=== PATIENT | female | born 1935 | race Caucasian/White ===

== ENCOUNTER → 2016-11-28 | Outpatient (CLI) | payer OTHER ==
[~2016-11-28] MED LIST: ALEVE220 M1 PO; AMITRIPTYLINE H25 M2 PO; ATIVAN0.5 MG PO; CLONAZEPAM0.125 MG PO; HYDROCODON-ACE1 EAC8 PO; LOSARTAN-HCTZ1 EACH PO; NEURONTIN 300300 M1 PO; NORVASC 5 MG TAB5 MG PO; PRILOSEC; PRILOSEC 20 MG20 MG PO
== END ==
LOC: RAD 11:13
DX: Z12.31 Encounter for screening mammogram for malignant neoplasm of breast (principal)

== ENCOUNTER → 2017-10-17 | Outpatient (CLI) | payer OTHER | LOC: RAD 11:33 | DX: M19.011 Primary osteoarthritis, right shoulder (principal); K44.9 Diaphragmatic hernia without obstruction or gangrene; I71.4 Abdominal aortic aneurysm, without rupture; R06.02 Shortness of breath; Z85.3 Personal history of malignant neoplasm of breast ==

== ENCOUNTER → 2018-01-13 | Outpatient (CLI) | payer OTHER | LOC: RAD 09:08 | DX: Z12.31 Encounter for screening mammogram for malignant neoplasm of breast (principal) ==

== ENCOUNTER → 2018-02-26 | Outpatient (CLI) | payer OTHER | LOC: ULTRA 12-22 15:14 → CAT 06:13 | DX: C50.919 Malignant neoplasm of unspecified site of unspecified female breast (principal); I71.4 Abdominal aortic aneurysm, without rupture; R10.84 Generalized abdominal pain ==

== ENCOUNTER → 2018-09-14 | Outpatient (CLI) | payer OTHER | LOC: RAD 11:59 | DX: M19.011 Primary osteoarthritis, right shoulder (principal); R92.8 Other abnormal and inconclusive findings on diagnostic imaging of breast; M79.601 Pain in right arm; M54.2 Cervicalgia; M47.892 Other spondylosis, cervical region; N64.4 Mastodynia; Z85.3 Personal history of malignant neoplasm of breast ==

== ENCOUNTER → 2018-11-20 | Outpatient (CLI) | payer OTHER | LOC: RAD 16:27 | DX: M76.21 Iliac crest spur, right hip (principal); M47.816 Spondylosis without myelopathy or radiculopathy, lumbar region; G89.29 Other chronic pain; R10.31 Right lower quadrant pain ==

== ENCOUNTER → 2018-11-27 | Outpatient (CLI) | payer OTHER | LOC: RAD 12:16 | DX: M48.061 Spinal stenosis, lumbar region without neurogenic claudication (principal); M25.78 Osteophyte, vertebrae; I70.0 Atherosclerosis of aorta; R10.31 Right lower quadrant pain ==

== ENCOUNTER → 2018-12-22 | Outpatient (CLI) | payer OTHER ==
[~2018-12-22] VITALS: Ht 165.1 cm; Wt 83.5 kg
[~2018-12-22] MED LIST changes: +TRAMADOL 50 MG50 MG PO; +TYLENOL EXTRA500 MG PO; +VOLTAREN GEL 1100 G1 TOP
[2018-12-22 13:12] VITALS: BP 155/96
--- NOTE | 2018-12-22 13:42 | NUR ---
Pain Clinic Assessment: 1. History of Osteoarthritis: History of Rheumatoid Arthritis: 2. Height: 5 ft. 5 in. 165.1 cm. Weight: 184.0 lb. oz. 83.462 kg. Patient's BMI: 30.6 3. Vital Signs: BP: 155/96 Pulse: 90 Resp: 20 Temp: 02 Sat: 98 ECG Mon: 4. Pain Intensity: 6 5. Fall Risk: Dizziness: N Needs help standing or walking: Y Fallen in the last 3 months: N Fall risk comments: 6. Patient on Blood Thinner: None 7. History of Hypertension: Y 8. Opioid Therapy greater than 6 weeks: N Opiate Contract Signed: 9. Risk Assessment Tool Provided: 10. Functional Assessment Tool: 11. Recreational Drug Use: Never Drug Type: Tobacco Use: Former Smoker Tobacco Type: Amount or Packs/day: How Many Years: Alcohol Use: Yes Frequency: Special Occasions Quant:
--- NOTE | 2018-12-23 10:54 | HPC ---
[facility] [place] [address] PAIN MANAGEMENT CONSULTATION Name: NELIA MARIA Zack Room #: [facility]#: [id number] Admission: 12/22/18 Attend Phys: John Sanchez DO Discharge: Date of : 35 Report #: [id number] THIS REPORT FOR: //name// CC: John Weller DATE OF SERVICE: 12/22/2018 REFERRING PHYSICIAN: Robinson Weller MD CHIEF COMPLAINT: Right anterior groin pain. HISTORY OF PRESENT ILLNESS: As you know, the patient is an 83-year-old female who has been referred to our service to discuss chronic right groin pain. The patient states her pain began in October 2018. Denies any specific injury or trauma. She indicates pain located along what appears to be the distribution of the right adductor muscle. She is also experiencing some groin discomfort, nondermatomal in distribution. The patient indicates that she has intermittent low back pain at times. She has been provided treatment with tramadol for pain control. This, in conjunction with Tylenol, has been reported to be somewhat beneficial. She has taken ibuprofen in the past, which she noted good benefit, but is resistant to taking anti-inflammatory medications as concern of GI discomfort. She has undergone x-ray imaging, which shows no fractures, no dislocations. The hemipelvis appears intact, there is mild lower lumbar degenerative changes, mild spurring of the anterior superior iliac spine, no bony abnormalities. Given the lack of findings in her pelvic area and hip area, she was then referred to our clinic to discuss the possibility of undergoing lumbar epidural injections for suspected lumbar radiculopathy. The patient indicates today, pain is continuous, steady, constant, describes the pain as aching, gnawing, throbbing and pounding. She places current pain score at 6/10, daily average is 7/10, worst pain has been at 9/10. The patient states that standing for any length of time, sitting for any length of time and bending seems to exacerbate symptoms. Medication tends to mildly improve pain. She has been referred to our service to discuss treatment options for a suspected lumbar radiculopathy. PAST MEDICAL HISTORY: 1. Abdominal aortic aneurysm. 2. Diverticulitis. 3. History of breast cancer. 4. Chronic cervical radiculopathy. 5. Essential hypertension. 6. History of nephrolithiasis. 7. Hypercholesterolemia. [address] [address] PAIN MANAGEMENT CONSULTATION Name: BRODYWALESKANELIA [id number] Admission: 12/22/18 Attend Phys: John Sanchez DO Discharge: Date of : 35 Report #: [id number] PAST SURGICAL HISTORY: 1. Two lumpectomies. 2. Lithotripsy. 3. Tonsillectomy and adenoidectomy. 4. Total abdominal hysterectomy with bilateral salpingo-oophorectomy. 5. Total knee arthroplasty bilaterally. SOCIAL HISTORY: The patient denies tobacco, alcohol, IV or illicit drug use. 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 She is not receiving workmen's compensation or she is trying to obtain disability benefits. She is not in litigation in regards to pain. REVIEW OF SYSTEMS: Positive for fatigue and weakness, wearing corrective eyewear, hearing loss with tinnitus, chronic sinus problems with rhinitis, shortness of breath with walking or lying flat, constipation interspersed with diarrhea, abdominal pain, frequent urination, nocturia, change in force or stream in urination, rash and itching, lightheadedness, dizziness, memory loss with confusion, nervousness, depression. All other review of systems negative per 12-point review of systems other than those listed in the history of present illness. Pain impact score 46/70 indicating severe interference with daily activities secondary to pain. IMAGING DATA: X-ray of the lumbar spine shows normal alignment, disk narrowing at multiple levels, anterior osteophyte formation unchanged from previous evaluation of 2009. Unilateral x-ray of the right hip shows mild spurring along the anterior superior iliac spine, otherwise normal. PQRS, the patient has osteoarthritic changes of the lumbar spine. Mild changes of the right hip. No rheumatoid arthritis. She is placing pain intensity at 6/10. She is a fall risk, but has not had a fall in the last 3 months. She does use a cane for ambulation. She is not on blood thinners. She is treated for hypertension. She is not on chronic opioids. She has a low addiction potential based on our assessment tool. Functional assessment pain impact score is 46/70. PHYSICAL EXAMINATION: VITAL SIGNS: Blood pressure 155/96, pulse 90, respiratory rate 20 and unlabored. The patient is saturating 98% on room air. Height 5 feet 5 inches tall, weight 184 pounds, BMI calculated at 30.6. GENERAL: Well-developed, well-nourished, well-hydrated 83-year-old female appearing stated age, placing current pain score at 6/10. [address] [address] PAIN MANAGEMENT CONSULTATION Name: NELIA MARIA Room #: [facility]#: [id number] Admission: 12/22/18 Attend Phys: John Sanchez DO Discharge: Date of : 35 Report #: [id number] HEENT: Normocephalic, atraumatic. Pupils equal, round, reactive to light. Extraocular muscles are intact. Sclerae nonicteric without injection. NEUROLOGIC: Cranial nerves 2-12 grossly intact. Speech fluent. The patient is deemed a good historian. LUNGS: Clear. No wheeze, rhonchi or rales. CARDIOVASCULAR: Regular. No appreciable gallop or rub. ABDOMEN: Soft, obese, normoactive bowel sounds. EXTREMITIES: Show no clubbing, no cyanosis, no edema. MUSCULOSKELETAL: Lower extremity strength appears symmetrical, but deconditioned bilaterally, 5/5. She is intact to light touch from L1 through S2 dermatomes. Seated straight leg raising negative. Supine straight leg raising negative. Carmela's test mildly positive for right anterior thigh pain. No intrinsic hip pathology. Modified Gaenslen's positive for some axial low back pain, no radiation of symptoms. Ankle clonus negative. Babinski is negative. Muscle bulk and tone symmetrical in lower extremities bilaterally. ASSESSMENT: 1. Suspected lumbar radiculopathy. 2. Facet arthropathy of the lumbar spine. 3. 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 4. Lumbar degeneration. 5. Chronic intractable pain. PLAN: 1. The patient has been referred to our service to discuss possible treatment for suspected lumbar radiculopathy. Difficult to determine if the symptoms she is experiencing are strictly radicular in origin. Her distribution of symptoms would indicate possible L1 finding given the groin involvement, the innervation for the adductor muscle on the right would be from the obturator nerve originating from the L2, L3, L4 level spinal roots. We discussed this with the patient today. Treatment options for suspected lumbar radiculopathy would be the following: We have been able to essentially rule out right hip as the source of the patient's pain given the negative x-ray imaging. We discussed the following treatment options for this suspected radiculopathy for which the patient was referred to our clinic. We discussed physical therapy, stretching exercises, core strengthening, which could improve the patient's overall pain. We discussed medication management with addition of a neuropathic pain medication as well as increased use of her ibuprofen for anti-inflammatory effects. We discussed the requested lumbar epidural injection under fluoroscopic guidance as a possible treatment option to address the innervation most likely involved in her anterior thigh and groin pain. We discussed possible surgical options, though further imaging would be necessary, specifically an MRI of the lumbar spine. After reviewing the risks and benefits of all proposed treatment options, the patient chose to begin with a lumbar epidural injection. [address] [address] PAIN MANAGEMENT CONSULTATION Name: NELIA MARIA Room #: REG [facility]#: [id number] Admission: 12/22/18 Attend Phys: John Sanchez DO Discharge: Date of : 35 Report #: [id number] The patient was advised that third democrat payer restrictions require that authorization be obtained before the patient could undergo a lumbar epidural injection under fluoroscopic guidance. Authorization could take anywhere from 4-7 working days, begin this process immediately. We will contact the patient once this authorization has been approved. 2. No medication changes made at today's visit. We have requested the patient take her ibuprofen 200 mg dose 3 times a day with meals, though she has been taking this medication inconsistently. We recommend a consistent dosing for the next couple of days to determine if efficacy can be reached with this medication. She will watch for side effects of dyspepsia, worsening blood pressure, lower extremity edema with its use. If she notes any side effects, discontinue immediately. 3. We will see the patient back in followup visit once we have achieved authorization to undergo the requested lumbar epidural injection. We will contact her by phone once we have the authorization and schedule her back as quickly as possible. We wish to thank the referring team for the opportunity to see this patient in consultation. We will keep you apprised of response to treatment as we address her ongoing right anterior groin pain. We again wish to thank you for the opportunity to see the patient in consultation. <ELECTRONICALLY SIGNED> By: John Sanchez DO 12/23/18 [id number] John Sanchez DO /nt
== END ==
LOC: PAIN 06:56
DX: I71.4 Abdominal aortic aneurysm, without rupture (principal); K57.30 Diverticulosis of large intestine without perforation or abscess without bleeding; M54.12 Radiculopathy, cervical region; E78.00 Pure hypercholesterolemia, unspecified; I10 Essential (primary) hypertension; Z85.3 Personal history of malignant neoplasm of breast; Z87.442 Personal history of urinary calculi; Z79.899 Other long term (current) drug therapy

== ENCOUNTER → 2018-12-29 | Outpatient (CLI) | payer OTHER ==
[~2018-12-29] VITALS: Ht 165.1 cm; Wt 82.2 kg
--- NOTE | ~2018-12-29 | HPC ---
[address] [address] PAIN MANAGEMENT CONSULTATION Name: BRODYWALESKANELIA Zack Room #: [facility]#: [id number] Admission: 12/29/18 Attend Phys: John Sanchez DO Discharge: Date of : 35 Report #: [id number] THIS REPORT FOR: //name// CC: John Weller DATE OF SERVICE: 12/29/2018 CHIEF COMPLAINT: Right anterior groin and right leg pain. HISTORY OF PRESENT ILLNESS: As you know, the patient is an 83-year-old female who was referred to our service to discuss right groin pain and right lower extremity pain. She states pain began in 2018. She is seen in consultation per the request of Dr. Weller where she was started on medication management with plans to possibly undergo lumbar epidural injection once approval has been obtained. The patient returns today in followup visit having received precertification, reporting pain score around 6-7/10. She reports no new injury, no new trauma or any changes in medical history since our last visit. She returns today to undergo the first in a series of lumbar epidural injections to address lumbar radicular symptoms. ALLERGIES: SULFA. CURRENT MEDICATIONS: Diclofenac gel, acetaminophen, lorazepam, tramadol, losartan, hydrochlorothiazide. SOCIAL HISTORY: The patient denies tobacco, alcohol, IV or illicit drug use. 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 IMAGING: No new imaging available. PQRS: The patient has osteoarthritic changes in the lumbar spine, mild osteoarthritic changes in the right hip. No rheumatoid arthritis. She is placing pain intensity at around 6-7/10. She is a fall risk, but has not had a fall in the last 3 months. She is using a cane for ambulation. She is on no blood thinners, but history of hypertension. She is not on chronic opioids. She has a low opioid addiction. Pain impact score 37/70 indicating moderate interference of daily activities secondary to pain. PHYSICAL EXAMINATION: VITAL SIGNS: Blood pressure 166/75, pulse 97, respiratory rate 16 and unlabored. The patient is 98% on room air. Height 5 feet 5 inches tall, weight 181.2 pounds, BMI calculated at 30.2. GENERAL: Well-developed, well-nourished, well-hydrated 83-year-old female appearing stated age. Pain is rated anywhere from 6-7/10. [address] [address] PAIN MANAGEMENT CONSULTATION Name: NELIA MARIA Room #: [facility]#: [id number] Admission: 12/29/18 Attend Phys: John Sanchez DO Discharge: Date of : 35 Report #: [id number] HEENT: Normocephalic, atraumatic. Pupils equal, round, reactive to light. EXTREMITIES: Show no clubbing, no cyanosis, no edema. MUSCULOSKELETAL: Lower extremity strength is symmetrical 5/5. She is intact to light touch from L1 through S2 dermatomes. Seated straight leg raising negative. Supine straight leg raising negative. Carmela's test is negative.: ASSESSMENT: 1. Suspected lumbar radiculopathy. 2. Facet arthropathy of the lumbar spine. 3. Lumbosacral spondylosis with suspected radicular symptoms. 4. Lumbar degeneration. 5. Chronic intractable pain. PLAN: 1. The patient returns today in followup visit reporting pain score around 6-7/10. She has received precertification to undergo the first in a series of lumbar epidural injections under fluoroscopic guidance. We have advised the patient of the risks and benefits of this procedure. These risks include but are not necessarily limited to bleeding, bruising, infection, worsening pain, no relief of pain, also risk of temporary or permanent muscle weakness, temporary or permanent nerve damage, possible paralysis, post-dural puncture headache and . The patient states she understood and wished to proceed. 2. No medication changes made at today's visit. The patient will continue current medical therapy as previously prescribed. 3. We will see the patient back in followup visit on an as needed basis for possible next in the series of lumbar epidural injections. PROCEDURE NOTE DESCRIPTION OF PROCEDURE: L5-S1 right paramedian epidural steroid injection under fluoroscopic guidance. This is the first procedure of the first series that the patient is undergoing. After obtaining written consent, the patient was taken back to the fluoroscopy suite, placed in a prone position with pillow under the abdomen to decrease lumbar lordosis. The skin overlying the lumbosacral area was then prepped and draped in aseptic fashion. The L5-S1 vertebral interspace was then identified by AP fluoroscopy. The skin and subcutaneous tissue overlying the target site of injection was anesthetized with 3 mL 1% lidocaine. A 20-gauge, 3.5-inch Tuohy needle was then advanced under fluoroscopic guidance towards the epidural space using a right paramedian approach. The epidural space was identified using loss of resistance to air technique. After negative aspiration for heme or cerebrospinal fluid, a total of 1 mL of Omnipaque was injected. A lumbar epidurogram was confirmed using both AP and lateral [address] [address] PAIN MANAGEMENT CONSULTATION Name: NELIA MARIA Room #: [facility]#: [id number] Admission: 12/29/18 Attend Phys: John Sanchez DO Discharge: Date of : 35 Report #: [id number] fluoroscopy. After negative aspiration for heme or cerebrospinal fluid, 5 mL of a solution containing 2 mL 40 mg per mL 80 mg total of triamcinolone, 3 mL of lidocaine 1% was injected in increments. Contrast spread was noted in posterior epidural space. The needle was then retracted approximately half way and needle tract flushed with 1 mL of 1% lidocaine. Needle was then removed. There were no apparent sensory or motor deficits in the lower extremity following the procedure. A sterile bandage was placed over the injection site. The heart rate, pulse, oximetry and blood pressure were continuously monitored after the procedure. There were no apparent complications. The patient tolerated the procedure well and was carefully escorted to the recovery room in stable condition. There were no apparent complications. After meeting discharge criteria, the patient was then discharged home. By: [id number] John Sanchez DO /nt
[2018-12-29 14:22] VITALS: BP 166/75
--- NOTE | 2018-12-29 14:33 | NUR ---
Pain Clinic Assessment: 1. History of Osteoarthritis: Not Applicable History of Rheumatoid Arthritis: Not Applicable 2. Height: 5 ft. 5 in. 165.1 cm. Weight: 181.2 lb. oz. 82.192 kg. Patient's BMI: 30.2 3. Vital Signs: BP: 166/75 Pulse: 97 Resp: 16 Temp: 02 Sat: 98 ECG Mon: 4. Pain Intensity: 6-7 5. Fall Risk: Dizziness: N Needs help standing or walking: Y Fallen in the last 3 months: N Fall risk comments: 6. Patient on Blood Thinner: None 7. History of Hypertension: Y 8. Opioid Therapy greater than 6 weeks: N Opiate Contract Signed: 9. Risk Assessment Tool Provided: 10. Functional Assessment Tool: 11. Recreational Drug Use: Never Drug Type: Tobacco Use: Former Smoker Tobacco Type: Amount or Packs/day: How Many Years: Alcohol Use: Yes Frequency: Quant:
== END | disposition home or self-care (01) ==
LOC: PAIN 06:59
DX: M51.16 Intervertebral disc disorders with radiculopathy, lumbar region (principal); M47.27 Other spondylosis with radiculopathy, lumbosacral region; M47.26 Other spondylosis with radiculopathy, lumbar region; G89.29 Other chronic pain; I10 Essential (primary) hypertension; Z88.2 Allergy status to sulfonamides; Z79.899 Other long term (current) drug therapy; Z87.891 Personal history of nicotine dependence; Z98.890 Other specified postprocedural states

== ENCOUNTER 2020-08-02 16:47 | Emergency (ER) | payer OTHER ==
[~2020-08-02] VITALS: Ht 165.1 cm; Wt 79.4 kg
[2020-08-02] MEDS ORDERED: LORAZEPAM 0.50.5 MG PO (17:35)
[2020-08-02] MEDS ORDERED: OMEPRAZOLE40 MG PO (19:03)
[2020-08-02 19:11] VITALS: BP 155/75
== END 2020-08-02 19:18 | disposition home or self-care (01) ==
LOC: ER 16:47
DX: T18.128A Food in esophagus causing other injury, initial encounter (principal); Z90.711 Acquired absence of uterus with remaining cervical stump; Z96.653 Presence of artificial knee joint, bilateral; Z79.899 Other long term (current) drug therapy; Z88.2 Allergy status to sulfonamides; X58.XXXA Exposure to other specified factors, initial encounter; Y93.89 Activity, other specified; Y92.89 Other specified places as the place of occurrence of the external cause; Y99.8 Other external cause status

== ENCOUNTER → 2020-11-20 | Outpatient (CLI) | payer OTHER ==
[~2020-11-20] MED LIST changes: +LORAZEPAM 0.50.5 MG PO; +OMEPRAZOLE40 MG PO
== END ==
LOC: BC 13:31
PROVIDERS: ATTEND Family Medicine
DX: Z12.31 Encounter for screening mammogram for malignant neoplasm of breast (principal)

== ENCOUNTER 2021-03-02 11:10 | Emergency (ER) | payer OTHER ==
[~2021-03-02] VITALS: Ht 162.6 cm; Wt 81.7 kg
[2021-03-02 12:07] LABS: ABSOLUTE NEUTROPHILS 5.7 thou/uL (1.4-8.2); BASOPHILS 0.5 % (0.0-2.0); EOSINOPHILS 0.2 % (0.0-3.0); HEMOGLOBIN 15.5 gm/dL (12.0-15.0); LYMPHOCYTES 19.7 % (24.0-44.0); MCH 29.5 pg (26.0-34.0); MCHC 33.6 g/dL (28.0-37.0); MCV 87.8 fL (80.0-100.0); MONOCYTES 7.1 % (1.0-8.0); PLATELET COUNT 190 thou/uL (150-400); POLYS 72.5 % (36.0-66.0); RBC 5.24 mil/uL (4.20-5.00); RDW 13.8 % (10.5-14.5); WBC 7.8 thou/uL (4.0-11.0)
[2021-03-02 12:12] LABS: ANION GAP 11 mmol/L (7-16); BUN 11 mg/dL (7-18); CALCIUM 9.4 mg/dL (8.5-10.1); CHLORIDE 101 mmol/L (98-107); CO2 27 mmol/L (21-32); CREATININE 1.1 mg/dL (0.6-1.0); GLUCOSE 116 mg/dL (74-106); POTASSIUM 3.5 mmol/L (3.5-5.1); SODIUM 139 mmol/L (136-145)
[2021-03-02 12:18] LABS: TROPONIN-I <0.06 ng/mL (<0.06)
[2021-03-02 12:57] LABS: URINE BILIRUBIN NEGATIVE (Negative); URINE BLOOD NEGATIVE (Negative); URINE CLARITY CLEAR; URINE COLOR YELLOW; URINE GLUCOSE-RANDOM* NEGATIVE (Negative); URINE KETONES NEGATIVE (Negative); URINE NITRITE-REFLEX NEGATIVE (Negative); URINE PROTEIN (DIPSTICK) NEGATIVE (Negative); URINE UROBILINOGEN 0.2 E.U./dl (0.2-1.0)
[2021-03-02 13:00] LABS: URINE LEUKOCYTES-REFLEX 1+ (Negative)
[2021-03-02 13:14] LABS: CASTS None Seen /LPF (None Seen); SQUAMOUS 0-3 Few /LPF (0-3); TRANSITIONAL EPITHEL CELL 0-3 Few /LPF (None Seen)
[2021-03-02 13:15] LABS: BACTERIA-REFLEX None Seen /HPF (None Seen); CRYSTALS None Seen /LPF (None Seen); URINE RBC None Seen /HPF (0-2); URINE WBC-REFLEX 0-5 Rare /HPF (0-5)
[2021-03-02] MEDS ORDERED: MECLIZINE HCL25 M1 PO (13:56)
[2021-03-02 14:52] VITALS: BP 163/80
--- NOTE | 2021-03-02 16:55 | EKG ---
[place] [address] [facility] [place] [place] [address] ELECTROCARDIOGRAM REPORT Name: NELIA MARIA Room #: [facility]#: [id number] Admission: 03/02/21 Attend Phys: Discharge: 03/02/21 Date of : 35 Report #: [id number] [facility] ED Test Date: 2021-03-02 Test Time: 12:03:33 Pat Name: NELIA MARIA Department: Room: Gender: F Superintendent Custodian Janitor: DARIUSZ : 1935 Requested By: Shayla Last Order Number: [id number] MD: Abhijit Rojas Measurements Intervals [place] Rate: 96 P: KS: QRS: -17 QRSD: 104 T: 9 QT: 366 QTc: 463 Interpretive Statements Sinus rhythm Borderline left axis deviation RSR' in V1 or V2, right VCD Compared to ECG 06/13/2014 19:51:59 Sinus tachycardia no longer present Atrial premature complex(es) no longer present Electronically Signed On 03-02-2021 16:55:16 CDT by Abhijit Rojas [email or web address] <ELECTRONICALLY SIGNED> By: Abhijit Rojas MD, [facility] 03/02/21 [id number] [id number] [id number] Abhijit Rojas MD, [facility] /EPI
== END 2021-03-02 14:53 | disposition home or self-care (01) ==
LOC: ER 11:10
PROVIDERS: Student in an Organized Health Care Education/Training Program
DX: R42 Dizziness and giddiness (principal); J06.9 Acute upper respiratory infection, unspecified; I10 Essential (primary) hypertension; Z88.2 Allergy status to sulfonamides; Z79.899 Other long term (current) drug therapy; Z90.710 Acquired absence of both cervix and uterus; Z96.653 Presence of artificial knee joint, bilateral

== ENCOUNTER 2021-05-17 12:22 | Emergency (ER) | payer OTHER ==
[~2021-05-17] VITALS: Ht 165.1 cm; Wt 83.9 kg
[~2021-05-17 12:22] MED LIST changes: +MECLIZINE HCL25 M1 PO
[2021-05-17 13:00] LABS: URINE BILIRUBIN NEGATIVE (Negative); URINE BLOOD 2+ (Negative); URINE CLARITY CLEAR; URINE COLOR YELLOW; URINE GLUCOSE-RANDOM* NEGATIVE (Negative); URINE KETONES NEGATIVE (Negative); URINE LEUKOCYTES-REFLEX TRACE (Negative); URINE NITRITE-REFLEX NEGATIVE (Negative); URINE PROTEIN (DIPSTICK) 1+ (Negative); URINE UROBILINOGEN 0.2 E.U./dl (0.2-1.0)
[2021-05-17 13:10] LABS: SQUAMOUS >10 Many /LPF (0-3)
[2021-05-17 13:11] LABS: BACTERIA-REFLEX 1-9 Few /HPF (None Seen); CASTS None Seen /LPF (None Seen); CRYSTALS None Seen /LPF (None Seen); URINE RBC 3-10 Few /HPF (NONE SEEN); URINE WBC-REFLEX 0-5 Rare /HPF (0-5)
[2021-05-17 13:18] LABS: CALCIUM 8.9 mg/dL (8.5-10.1); CREATININE 0.9 mg/dL (0.6-1.0); POTASSIUM 3.7 mmol/L (3.5-5.1)
[2021-05-17 13:43] LABS: ABSOLUTE NEUTROPHILS 8.7 thou/uL (1.4-8.2); BASOPHILS 0.7 % (0.0-2.0); EOSINOPHILS 0.6 % (0.0-3.0); HEMATOCRIT 44.3 % (37.0-47.0); HEMOGLOBIN 14.9 gm/dL (12.0-15.0); LYMPHOCYTES 17.6 % (24.0-44.0); MCH 29.5 pg (26.0-34.0); MCHC 33.5 g/dL (28.0-37.0); MCV 87.9 fL (80.0-100.0); MONOCYTES 5.4 % (1.0-8.0); PLATELET COUNT 176 thou/uL (150-400); POLYS 75.7 % (36.0-66.0); RBC 5.04 mil/uL (4.20-5.00); RDW 13.8 % (10.5-14.5); WBC 11.5 thou/uL (4.0-11.0)
[2021-05-17 14:55] VITALS: BP 154/81
== END 2021-05-17 14:55 | disposition home or self-care (01) ==
LOC: ER 12:22
PROVIDERS: Nurse Practitioner
DX: S01.81XA Laceration without foreign body of other part of head, initial encounter (principal); S20.312A Abrasion of left front wall of thorax, initial encounter; I10 Essential (primary) hypertension; Z90.710 Acquired absence of both cervix and uterus; Z88.2 Allergy status to sulfonamides; W18.09XA Striking against other object with subsequent fall, initial encounter; Y93.89 Activity, other specified; Y92.89 Other specified places as the place of occurrence of the external cause; Y99.8 Other external cause status

== ENCOUNTER 2021-11-13 23:59 | Emergency (ER) | payer OTHER ==
[~2021-11-13] VITALS: Ht 165.1 cm; Wt 77.1 kg
--- NOTE | ~2021-11-13 | EMS ---
[place] [address] EMS Patient Care Report Name: NELIA MARIA Room #: DEP [facility]#: [id number] Admission: 11/13/21 Attend Phys: Discharge: 11/14/21 Date of : 35 Report #: [id number] THIS REPORT FOR: //name// Report Transmitted: 11/14/2021 10:05 EMS Care Summary [place], [place]/[facility] Incident [id number] @ 11/13/2021 23:35 Incident Location [address] [place] [address] Patient NELIA MARIA Female, 86 Years 1935 Patient Address [address] [place] [address] Patient History None Reported, Patient Allergies No known allergies, Patient Medications None Reported, Chief Complaint chicken stuck in her esophagus Disposition Transported No Lights/[place] Reason Sick Person Transported To [facility] Narrative Dispatched to a private residence in regards to a chest pain. On arrival, i saw patient standing in the main hallway by the front door. initial assessment revealed that patient was A&Ox4 and did not appear to be in respiratory distress. Patient's chief complaint was a [place] [address] EMS Patient Care Report Name: NELIA MARIA Room #: DEP [facility]#: [id number] Admission: 11/13/21 Attend Phys: Discharge: 11/14/21 Date of : 35 Report #: [id number] esophagus. Patient stated that this happened about an hour ago and this has happened to her before. Physical assessment revealed that patient was pink warm and dry. Patient was able to ambulate unassisted to our cot. Patient was secured and lifted into the ambulance. Treatment rendered was obtaining a complete set of baseline vital signs. Patient was transported to [facility] and radio report was given en route. Patient care was transferred on arrival. Initial Vitals @23:44P: 128,R: 16,BP: 171/112,Pain: 0/10,GCS: 15,SpO2: 98,Revised Trauma: 12, @23:47P: 122,R: 16,BP: 167/103,Pain: 0/10,GCS: 15,CO: 0,SpO2: 98,Revised Trauma: 12, Assessments @23:45MENTAL:Event Oriented,Place Oriented,Time Oriented,Person Oriented,SKIN:HEENT:LUNG SOUNDS:ABDOMEN:PELVIS//GI:EXTREMITIES:PULSE:NEURO:No Abnormalities, Impression Generalized Weakness Procedures @23:44 ALS Assessment Response: UnchangedSucceeded Timeline 23:32,Call Received 23:32,Dispatch Notified 23:35,Dispatched 23:35,En Route 23:39,On Scene 23:40,At Patient 23:44,BP: 171/112 M,PULSE: 128,RR: 16 R,SPO2: 98 Ox,ETCO2: ,BG: ,PAIN: 0,GCS: 15, 23:44,ALS Assessment,Response: UnchangedSucceeded, 23:47,BP: 167/103 M,PULSE: 122,RR: 16 R,SPO2: 98 Ox,ETCO2: ,BG: ,PAIN: 0,GCS: 15, 23:47,Depart Scene 23:52,At Destination 00:04,Call Closed Disclaimer v1.1 Copyright 2020 [employer] This EMS Care Summary contains data elements from the applicable legal record (which may be displayed differently). It is designed to provide pertinent information for the following purposes: continuity of care, clinical quality, [facility] [address] [place] [address] EMS Patient Care Report Name: NELIA MARIA Room #: DEP [facility]#: [id number] Admission: 11/13/21 Attend Phys: Discharge: 11/14/21 Date of : 35 Report #: [id number] and state data reporting. The complete legal record is available to ED staff and administrators of the receiving hospital in [employer]'s Patient Tracker. All data is provided "as is."
[2021-11-14] MEDS ORDERED: LOSARTAN-HCTZ1 EAC3 PO (00:59)
[2021-11-14] MEDS ORDERED: NORVASC 2.5 MG2.5 M1 PO (00:59)
[2021-11-14] MEDS ORDERED: PRILOSEC OTC20 MG PO (01:45)
[2021-11-14 01:54] VITALS: BP 157/47
== END 2021-11-14 04:30 | disposition home or self-care (01) ==
LOC: ER 23:59
DX: K22.2 Esophageal obstruction (principal); Z20.822 Contact with and (suspected) exposure to COVID-19; I10 Essential (primary) hypertension; Z90.710 Acquired absence of both cervix and uterus; Z79.899 Other long term (current) drug therapy; Z88.2 Allergy status to sulfonamides